=== PATIENT | female | born 1940 | race Hispanic/Latino ===

== ENCOUNTER 2019-11-14 10:25 | Emergency (ER) | payer MEDICARE, OTHER ==
[~2019-11-14] VITALS: Ht 162.6 cm; Wt 102.1 kg
[~2019-11-14 10:25] MED LIST: HYDROCODONE; LEVOFLOXACIN500 MG PO; PANTOPRAZOLE SO40 MG PO
--- OUTSIDE RECORDS SUMMARY | 2019-11-14 10:28 | XMS REPORT ---
Author Author [facility] Organization [facility] Address Unknown Phone Unavailable Care Team Providers Care Caustic Mixer Name Role Phone HUY BRANCH Unavailable Unavailable BUTCH DUBON Unavailable Unavailable Problems This patient has no known problems. Allergies, Adverse Reactions, Alerts This patient has no known allergies or adverse reactions. Medications This patient has no known medications. Results Test Description Test Time Test Comments Text Results Atomic Results Result Comments TISSUE EXAM 2019-01-10 16:54:00 Surgical Pat hology Report Case: [id number] Authorizing Provider: Luis Eduardo Branch MD Collected: 01/08/2019 1235 Ordering Location: [facility] PERIOPERATIVE Received: 01/08/2019 1403 SERVICES Pathologist: Fausto Pro MD Specimen: Bursa/Synovial Cyst VERTEBRAL COLUMN, INTERVERTEBRAL DISC, DISCECTOMY:FRAGMENTS OF FIBROCARTILAGE WITH CYSTIC DEGENERATION Signing Pathologist Direct Phone Line: [phone] signed by Fausto Pro MD on 01/10/2019 at 4:54 [id number] stenosis with neurogenic claudicationBursa/synovial cystThe case is received in part labeled with the patient's name, Gerda Cantrell, date of 1940 and accession number [id number] which corresponds to accompanying requisition page labeled with the same name and accession number. Received in formalin labeled "bursa/synovial cyst" is a 0.7 x 0.5 x 0.2 cm irregular mcwilliams-pink piece of tissue. The specimen submitted in toto following filtration in cassette A1. RP/plPERFORMED RAD, SPINE, LUMBAR, 1 VIEW 2019-01-08 11:45:00 Reason for ex am:->bilateral lamenectomy L3-L4 FINAL REPORT RAD, SPINE, LUMBAR, 1 VIEW CLINICAL INDICATION: bilateral lamenectomy L3-L4 COMPARISON: None IMPRESSION: A single lateral view of the lumbar spine is obtained intraoperatively. Indicator probe is present at the L3-4 level. Results were communicated to Dr. Branch, who concurred with the above findings. Signed: JR Danielle, Liane Chirinos Verified Date/Time: 01/08/2019 11:45:14 Reading Location: [facility] Reading Room -GLUCOSE METER 2018-02-28 10:51:00 POC-GLUCOSE METER (BEAKER) (test code = 1538) 182 mg/dL 70 -110 TESTED AT [facility] [address] [facility] [address] POCT-GLUCOSE [id number] 08:01:00* Test Item Value Reference Range Comments POC-GLUCOSE METER (BEAKER) (test code = 1538) 108 mg/dL 70 -110 TESTED AT [place] [id number] [facility] [address] COMPREHENSIVE METABOLIC [id number] 06:05:00* Test Item Value Reference Range Comments TOTAL PROTEIN (BEAKER) (test code = 770) 6.4 gm/dL 6.0-8.3 ALBUMIN (BEAKER) (test code = 1145) 3.8 g/dL 3.5-5.0 ALKALINE PHOSPHATASE (BEAKER) (test code = 346) 130 U/L 40-150 BILIRUBIN TOTAL (BEAKER) (test code = 377) 0.6 mg/dL 0.2-1 .2 SODIUM (BEAKER) (test code = 381) 143 meq/L 136-145 POTASSIUM (BEAKER) (test code = 379) 3.6 meq/L 3.5-5.1 CHLORIDE (BEAKER) (test code = 382) 109 meq/L 98-107 CO2 (BEAKER) (test code = 355) 24 meq/L 22-29 BLOOD UREA NITROGEN (BEAKER) (test code = 354) 11 mg/dL 7 -21 CREATININE (BEAKER) (test code = 358) 1.16 mg/dL 0.57-1.25 GLUCOSE RANDOM (BEAKER) (test code = 652) 116 mg/dL 70-105 CALCIUM (BEAKER) (test code = 697) 9.6 mg/dL 8.4-10.2 AST (SGOT) (BEAKER) (test code = 353) 75 U/L 5-34 ALT (SGPT) (BEAKER) (test code = 347) 98 U/L 6-55 EGFR (BEAKER) (test code = 1092) mL/min/1.73 sq m INSUFFICIENT CLINICAL DATA TO CALCULATE ESTIMATED GFR. B-TYPE NATRIURETIC FACTOR (BNP)2018-02-28 05:54:00* Test Item Value Reference Range Comments B-TYPE NATRIURETIC PEPTIDE (BEAKER) (test code = 700) 40 pg/mL 0-100 POCT-GLUCOSE [id number] 21:30:00* Test Item Value Reference Range Comments POC-GLUCOSE METER (BEAKER) (test code = 1538) 139 mg/dL 70 -110 TESTED AT [place] [id number] [facility] [address] EEG AWAKE AND [id number] 16:55:00Reason for exam:->AMSELECTROENCEPHALOGRAM PATIENT NAME: GERDA CANTRELL EEG NUMBER: [id number] EXAM DATE: FEBRUARY 27, 2018 START TIME: 9:56 AM END TIME: 10:18 AM ICD10: R56.8 TECHNICAL SUMMARY The occipital dominant rhythm is 9 Hz. Low voltage 18 to 22 Hz activity is present in anterior regions. There is some myogenic and movement potential present throughout the awake recording. Sleep: No focal or lateralizing features and no abnormal activity during periods of drowsiness. Photic stimulation: No ab normal activity elicitied. IMPRESSION: The findings of this patient's electro encephalogram are within the range of normal variation. Kim Guevara MD - GLUCOSE [id number] 13:08:00* Test Item Value Reference Range Comments POC-GLUCOSE METER (BEAKER) (test code = 1538) 165 mg/dL 70 -110 TESTED AT [facility] [address] [facility] [address] POCT-GLUCOSE [id number] 09:14:00* Test Item Value Reference Range Comments POC-GLUCOSE METER (BEAKER) (test code = 1538) 125 mg/dL 70 -110 TESTED AT [place] [id number] [facility] [address] POCT-GLUCOSE [id number] 17:34:00* Test Item Value Reference Range Comments POC-GLUCOSE METER (BEAKER) (test code = 1538) 175 mg/dL 70 -110 TESTED AT [facility] [address] [facility] [address] POCT-GLUCOSE [id number] 12:26:00* Test Item Value Reference Range Comments POC-GLUCOSE METER (BEAKER) (test code = 1538) 147 mg/dL 70 -110 TESTED AT [facility] [address] [facility] [address] POCT-GLUCOSE [id number] 07:54:00* Test Item Value Reference Range Comments POC-GLUCOSE METER (BEAKER) (test code = 1538) 125 mg/dL 70 -110 TESTED AT [facility] [address] [facility] [address] MR, BRAIN, WITHOUT [id number] 07:41:00Reason for exam:->Ischemic Stroke EvaluationFINAL REPORT MRI brain without contrast INDICATION: Dizziness, headache, trauma, fall TECHNIQUE: Multiplanar, multisequence MR imaging of the brain was performed utilizing the following imaging sequences: Axial T2, FLAIR, GRE, and DWI; sagittal and coronal T1 COMPARISON: CT head 02/24/2018 FINDINGS:There is no acute infarct, hematoma, extra-axial collection, hydrocephalus, or mass effect. Moderate cerebral chronic microvascular ischemia is present. There are chronic left larger than right cerebellar infarcts. The major vascular flow voids are maintained. There is generalized parenchymal volume loss. There is C1-2 arthropathy and cervical spondylosis. The sinuses and mastoid air cells are well aerated. The globes appear proptotic. The sella is unremarkable. There is nonspecific mildly heterogeneous marrow signal. IMPRESSION: 1. No evidence of acute infarct, hemorrhage, or hydrocephalus. 2. 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 3. Chronic microvascular ischemic changes. 4. Please see concurrent MRA for additional findings. Signed: Nely Douglas MDRort Verified Date/Time: 02/26/2018 07:41:14 Reading Location: [address] Neuro Reading Room A M MR, MRA, BRAIN, WITHOUT [id number] 07:40:00Reason for exam:->Ischemic Stroke EvaluationFINAL REPORT MRA head and neck without contrast INDICATION: Dizziness, headache, fall, trauma TECHNIQUE: 2-D and 3-D [id number] MRA images of the intra- and extracranial carotid and vertebral artery circulations were obtained, from which maximal intensity projection reconstructions were generated. COMPARISON: None available FINDINGS: MRA neck:The exam is motion degraded. Abnormalities may be obscured. There is cervical carotid atherosclerosis with mural thickening. There is redundancy and tortuosity of the right mid to distal ICA. No hemodynamically significant ICA stenosis is seen by NASCET criteria. There is antegrade flow in the cervical vertebral arteries without flow limitation. The proximal vertebral arteries cannot be evaluated due to artifacts and resultant signal loss. MRA [place]:The left CHANDRIKA A1 segment is hypoplastic chronically occluded. There is moderate tapered distal basilar artery stenosis, mild left intradural vertebral artery stenosis, carotid siphon atherosclerosis. The remaining proximal [place] vessels penetrate no flow limiting stenosis. 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 IMPRESSION: 1. Motion degraded exams. 2. Cervical carotid atherosclerosis without evident hemodynamically significant ICA stenosis by NASCET criteria. 3. Obscured v ertebral artery proximal segments due to artifacts. Otherwise no flow limiting c ervical vertebral artery stenosis seen. 4. 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 5. 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 MRA surveillance can be obtained for stability assessment, perhaps in 6-12 months. Signed: Nely Douglas MDReport Verified Date/Reij e: 02/26/2018 07:40:29 Reading Location: [facility] B1 C013V Neuro Reading Room Elec tronically signed by: NELY DOUGLAS M.D. on 02/26/2018 07:40 AM MR, MRA, NECK, WITHOUT IV [id number] 07:40:00Reason for exam:->Ischemic Stroke EvaluationFINAL REPORT MRA head and neck without contrast INDICATION: Dizziness, headache, fall, trauma TECHNIQUE: 2-D and 3-D [id number] MRA images of the intra- and extracranial carotid and vertebral artery circulations were obtained, from which maximal intensity projection reconstructions were generated. COMPARISON: None available FINDINGS: MRA neck:The exam is motion degraded. Abnormalities may be obscured. There is cervical carotid atherosclerosis with mural thickening. There is redundancy and tortuosity of the right mid to distal ICA. No hemodynamically significant ICA stenosis is seen by NASCET criteria. There is antegrade flow in the cervical vertebral arteries without flow limitation. The proximal vertebral arteries cannot be evaluated due to artifacts and resultant signal loss. MRA [place]:The left CHANDRIKA A1 segment is hypoplastic chronically occluded. There is moderate tapered distal basilar artery stenosis, mild left intradural vertebral artery stenosis, carotid siphon atherosclerosis. The remaining proximal [place] vessels penetrate no flow limiting stenosis. 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 IMPRESSION: 1. Motion degraded exams. 2. Cervical carotid atherosclerosis without evident hemodynamically significant ICA stenosis by NASCET criteria. 3. Obscured v ertebral artery proximal segments due to artifacts. Otherwise no flow limiting c ervical vertebral artery stenosis seen. 4. 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 5. 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 MRA surveillance can be obtained for stability assessment, perhaps in 6-12 months. Signed: Nely Douglas MDReport Verified Date/Reji e: 02/26/2018 07:40:29 Reading Location: [address] Neuro Reading Room Elec tronically signed by: NELY DOUGLAS M.D. on 02/26/2018 07:40 AM COMPREHENSIVE METABOLIC [id number] 03:29:00* Test Item Value Reference Range Comments TOTAL PROTEIN (BEAKER) (test code = 770) 6.2 gm/dL 6.0-8.3 ALBUMIN (BEAKER) (test code = 1145) 3.7 g/dL 3.5-5.0 ALKALINE PHOSPHATASE (BEAKER) (test code = 346) 148 U/L 40-150 BILIRUBIN TOTAL (BEAKER) (test code = 377) 0.5 mg/dL 0.2-1 .2 SODIUM (BEAKER) (test code = 381) 142 meq/L 136-145 POTASSIUM (BEAKER) (test code = 379) 3.7 meq/L 3.5-5.1 CHLORIDE (BEAKER) (test code = 382) 111 meq/L 98-107 CO2 (BEAKER) (test code = 355) 24 meq/L 22-29 BLOOD UREA NITROGEN (BEAKER) (test code = 354) 20 mg/dL 7 -21 CREATININE (BEAKER) (test code = 358) 1.25 mg/dL 0.57-1.25 GLUCOSE RANDOM (BEAKER) (test code = 652) 112 mg/dL 70-105 CALCIUM (BEAKER) (test code = 697) 9.0 mg/dL 8.4-10.2 AST (SGOT) (BEAKER) (test code = 353) 122 U/L 5-34 ALT (SGPT) (BEAKER) (test code = 347) 137 U/L 6-55 EGFR (BEAKER) (test code = 1092) mL/min/1.73 sq m INSUFFICIENT CLINICAL DATA TO CALCULATE ESTIMATED GFR. CBC W/PLT COUNT & AUTO [id number] 03:08:00* Test Item Value Reference Range Comments WHITE BLOOD CELL COUNT (BEAKER) (test code = 775) 5.1 K/ L 3.5-10.5 RED BLOOD CELL COUNT (BEAKER) (test code = 761) 3.63 M/ L 3.93-5.22 HEMOGLOBIN (BEAKER) (test code = 410) 11.2 GM/DL 11.2-15.7 HEMATOCRIT (BEAKER) (test code = 411) 34.6 % 34.1-44.9 MEAN CORPUSCULAR VOLUME (BEAKER) (test code = 753) 95.3 fL 79.4-94.8 MEAN CORPUSCULAR HEMOGLOBIN (BEAKER) (test code = 751) 30.9 pg 25.6-32.2 MEAN CORPUSCULAR HEMOGLOBIN CONC (BEAKER) (test code = 752) 32.4 GM/DL 32.2-35.5 RED CELL DISTRIBUTION WIDTH (BEAKER) (test code = 412) 13.9 % 11.7-14.4 PLATELET COUNT (BEAKER) (test code = 756) 152 K/CU MM 150-45 0 MEAN PLATELET VOLUME (BEAKER) (test code = 754) 10.4 fL 9.4-12.3 NUCLEATED RED BLOOD CELLS (BEAKER) (test code = 413) 0 /100 WBC 0-0 NEUTROPHILS RELATIVE PERCENT (BEAKER) (test code = 429) 47 % LYMPHOCYTES RELATIVE PERCENT (BEAKER) (test code = 430) 41 % MONOCYTES RELATIVE PERCENT (BEAKER) (test code = 431) 7 % EOSINOPHILS RELATIVE PERCENT (BEAKER) (test code = 432) 4 % BASOPHILS RELATIVE PERCENT (BEAKER) (test code = 437) 0 % NEUTROPHILS ABSOLUTE COUNT (BEAKER) (test code = 670) 2.37 K/ L 1.56-6.13 LYMPHOCYTES ABSOLUTE COUNT (BEAKER) (test code = 414) 2.08 K/ L 1.18-3.74 MONOCYTES ABSOLUTE COUNT (BEAKER) (test code = 415) 0.34 K/ L 0.24-0.36 EOSINOPHILS ABSOLUTE COUNT (BEAKER) (test code = 416) 0.22 K/ L 0.04-0.36 BASOPHILS ABSOLUTE COUNT (BEAKER) (test code = 417) 0.02 K/ L 0.01-0.08 IMMATURE GRANULOCYTES-RELATIVE PERCENT (BEAKER) (test code = 280 1) 1 % 0-1 POCT-GLUCOSE [id number] 22:52:00* Test Item Value Reference Range Comments POC-GLUCOSE METER (BEAKER) (test code = 1538) 123 mg/dL 70 -110 TESTED AT [facility] [address] [facility] [address] HEMOGLOBIN [id number] 11:09:00* Test Item Value Reference Range Comments HEMOGLOBIN A1C (BEAKER) (test code = 368) 6.2 % 4.3-6. 1 TSH/FREE T4 IF [id number] 06:32:00* Test Item Value Reference Range Comments THYROID STIMULATING HORMONE (BEAKER) (test code = 772) 1.71 uIU/ mL 0.35-4.94 [id number] 05:58:00* Test Item Value Reference Range Comments MAGNESIUM (BEAKER) (test code = 627) 2.4 mg/dL 1.6-2.6 LIPID [id number] 05:58:00* Test Item Value Reference Range Comments TRIGLYCERIDES (BEAKER) (test code = 540) 177 mg/dL CHOLESTEROL (BEAKER) (test code = 631) 138 mg/dL HDL CHOLESTEROL (BEAKER) (test code = 976) 38 mg/dL LDL CHOLESTEROL CALCULATED (BEAKER) (test code = 633) 65 mg/dL Triglyceride Reference Range: Low Risk <150 Borderline 150-199 High Risk 200-499 Very High Risk >=500Cholesterol Reference Range: Low Risk <200 Borderline 200-239 High Risk >240HDL Cholesterol Reference Range: Low Risk >=60 High Risk <40LDL Cholesterol Reference Range: Optimal <100 Near Optimal 100-129 Borderline 130-159 High 160-189 Very High >=190 HEPATIC FUNCTION [id number] 05:58:00* Test Item Value Reference Range Comments TOTAL PROTEIN (BEAKER) (test code = 770) 6.5 gm/dL 6.0-8.3 ALBUMIN (BEAKER) (test code = 1145) 3.9 g/dL 3.5-5.0 BILIRUBIN TOTAL (BEAKER) (test code = 377) 0.6 mg/dL 0.2-1 .2 BILIRUBIN DIRECT (BEAKER) (test code = 706) 0.3 mg/dL 0.1- 0.5 ALKALINE PHOSPHATASE (BEAKER) (test code = 346) 169 U/L 40-150 AST (SGOT) (BEAKER) (test code = 353) 243 U/L 5-34 ALT (SGPT) (BEAKER) (test code = 347) 211 U/L 6-55 BASIC METABOLIC [id number] 05:58:00* Test Item Value Reference Range Comments SODIUM (BEAKER) (test code = 381) 143 meq/L 136-145 POTASSIUM (BEAKER) (test code = 379) 3.7 meq/L 3.5-5.1 CHLORIDE (BEAKER) (test code = 382) 110 meq/L 98-107 CO2 (BEAKER) (test code = 355) 22 meq/L 22-29 BLOOD UREA NITROGEN (BEAKER) (test code = 354) 31 mg/dL 7 -21 CREATININE (BEAKER) (test code = 358) 1.76 mg/dL 0.57-1.25 GLUCOSE RANDOM (BEAKER) (test code = 652) 97 mg/dL 70-105 CALCIUM (BEAKER) (test code = 697) 9.2 mg/dL 8.4-10.2 EGFR (BEAKER) (test code = 1092) mL/min/1.73 sq m INSUFFICIENT CLINICAL DATA TO CALCULATE ESTIMATED GFR. B-TYPE NATRIURETIC FACTOR (BNP)2018-02-25 05:55:00* Test Item Value Reference Range Comments B-TYPE NATRIURETIC PEPTIDE (BEAKER) (test code = 700) 326 pg/mL 0-100 CBC W/PLT COUNT & AUTO [id number] 05:26:00* Test Item Value Reference Range Comments WHITE BLOOD CELL COUNT (BEAKER) (test code = 775) 4.6 K/ L 3.5-10.5 RED BLOOD CELL COUNT (BEAKER) (test code = 761) 3.76 M/ L 3.93-5.22 HEMOGLOBIN (BEAKER) (test code = 410) 11.6 GM/DL 11.2-15.7 HEMATOCRIT (BEAKER) (test code = 411) 36.2 % 34.1-44.9 MEAN CORPUSCULAR VOLUME (BEAKER) (test code = 753) 96.3 fL 79.4-94.8 MEAN CORPUSCULAR HEMOGLOBIN (BEAKER) (test code = 751) 30.9 pg 25.6-32.2 MEAN CORPUSCULAR HEMOGLOBIN CONC (BEAKER) (test code = 752) 32.0 GM/DL 32.2-35.5 RED CELL DISTRIBUTION WIDTH (BEAKER) (test code = 412) 13.8 % 11.7-14.4 PLATELET COUNT (BEAKER) (test code = 756) 149 K/CU MM 150-45 0 MEAN PLATELET VOLUME (BEAKER) (test code = 754) 10.7 fL 9.4-12.3 NUCLEATED RED BLOOD CELLS (BEAKER) (test code = 413) 0 /100 WBC 0-0 NEUTROPHILS RELATIVE PERCENT (BEAKER) (test code = 429) 54 % LYMPHOCYTES RELATIVE PERCENT (BEAKER) (test code = 430) 35 % MONOCYTES RELATIVE PERCENT (BEAKER) (test code = 431) 7 % EOSINOPHILS RELATIVE PERCENT (BEAKER) (test code = 432) 4 % BASOPHILS RELATIVE PERCENT (BEAKER) (test code = 437) 1 % NEUTROPHILS ABSOLUTE COUNT (BEAKER) (test code = 670) 2.45 K/ L 1.56-6.13 LYMPHOCYTES ABSOLUTE COUNT (BEAKER) (test code = 414) 1.58 K/ L 1.18-3.74 MONOCYTES ABSOLUTE COUNT (BEAKER) (test code = 415) 0.30 K/ L 0.24-0.36 EOSINOPHILS ABSOLUTE COUNT (BEAKER) (test code = 416) 0.17 K/ L 0.04-0.36 BASOPHILS ABSOLUTE COUNT (BEAKER) (test code = 417) 0.03 K/ L 0.01-0.08 IMMATURE GRANULOCYTES-RELATIVE PERCENT (BEAKER) (test code = 280 1) 0 % 0-1 U/S, RENAL, [id number] 03:20:00Reason for exam:->renal failureFINAL REPORT EXAM: COMPLETE RENAL ULTRASOUND CLINICAL HISTORY: RENAL FAILURE TECHNIQUE: A complete renal ultrasound was performed in the usual fashion with transabdominal imaging. FINDINGS: Compared with abdominal CT 09/13/2012 The right kidney measures 11 x 5 x 7 cm. The left kidney measures 11 x 5 x 5 cm. No evidence of hydronephrosis. The right kidney is associated with at least 2 small echogenic foci which measure 6 mm and 4 mm respectively and are s uspicious for small renal stones. The left kidney is also associated with a smal l 4 mm echogenic focus again suspicious for a nonobstructing calculus. The renal cortical echogenicity was normal. The right renal cortex measures 15 mm. Left r enal cortex measures 14 mm. The main renal arteries and veins were patent where visible. Right kidney lower pole is associated with a 7 cm cyst. Left kidney low er pole is associated with a 2.4 cm cyst. The bladder is distended. The prevoid bladder volume was 608 cc. The post void bladder volume was 242 cc. IMPRESSION: Small bilateral nonobstructing renal calculi. Post void bladder residual (242 cc ). Simple bilateral renal cysts. Signed: Nestor Salas MDReport Verified Date/Reji e: 02/25/2018 03:20:12 Reading Location: [address] Transitional Reading Room ALYSIS W/ [id number] 13:16:00* Test Item Value Reference Range Comments COLOR (BEAKER) (test code = 470) Yellow CLARITY (BEAKER) (test code = 469) Clear SPECIFIC GRAVITY UA (BEAKER) (test code = 468) 1.005 1 .001-1.035 PH UA (BEAKER) (test code = 467) 5.5 5.0-8.0 PROTEIN UA (BEAKER) (test code = 464) Negative Negative GLUCOSE UA (BEAKER) (test code = 365) Negative Negative KETONES UA (BEAKER) (test code = 371) Negative Negative BILIRUBIN UA (BEAKER) (test code = 462) Negative Negative BLOOD UA (BEAKER) (test code = 461) Negative Negative NITRITE UA (BEAKER) (test code = 465) Negative Negative LEUKOCYTE ESTERASE UA (BEAKER) (test code = 466) Small Negative UROBILINOGEN UA (BEAKER) (test code = 463) 0.2 mg/dL 0.2-1 .0 RBC UA (BEAKER) (test code = 519) 0 /HPF WBC UA (BEAKER) (test code = 520) 1 /HPF BACTERIA (BEAKER) (test code = 517) Rare SQUAMOUS EPITHELIAL (BEAKER) (test code = 516) < /HPF SOURCE(BEAKER) (test code = 2795) Urine, Clean Catch RAD, CHEST, 1 VIEW, NON [id number] 11:39:00Reason for exam:->CHEST PAINShould this be performed at the bedside?->YesFINAL REPORT Chest one view INDICATION: Chest pain COMPARISON: 09/13/2012 IMPRESSION: The right diaphragm remains elevated. There is no focal consolidation, edema, pleural effusion, or pneumothorax. The cardiac silhouette is enlarged. Aortic calcification mild tortuosity and a right humeral head suture anchor are noted. Signed: Nely Douglas MDReport Verified Date/Time: 02/24/2018 11:39:52 Reading Location: [facility] Radiology Reading Room TINE KINASE (CK), TOTAL AND [id number] 11:05:00* Test Item Value Reference Range Comments CREATINE KINASE TOTAL (BEAKER) (test code = 380) 249 U/L 29-200 CREATINE KINASE-MB (BEAKER) (test code = 750) 5.7 ng/mL 0. 0-6.6 CREATINE KINASE-MB INDEX (JULIO C) (test code = 395) 2.3 % CK-MB Reference Range:<6.7 Normal6.7-10.0 Borderline>10.0 Abnormal TROPONIN [id number] 11:05:00* Test Item Value Reference Range Comments TROPONIN I (JULIO C) (test code = 397) 0.01 ng/mL 0.00-0.03 Troponin I (TnI) levels must be interpreted in the context of the presenting sym ptoms and the clinical findings. Elevated TnI levels indicate myocardial damage, but are not specific for ischemic heart disease. Elevated TnI levels are seen in patients with other cardiac conditions (including myocarditis and congestive h eart failure), and slight TnI elevations occur in patients with other conditions , including sepsis, renal failure, acidosis, acute neurological disease, and per sistent tachyarrhythmia.CT, BRAIN, WITHOUT [id number] 11:03:00Reason for exam:->headacheWhat is the patient's sedation requirement?->No SedationFINAL REPORT CT head without contrast. Comparisons: No Reason for exam: headachefall/trauma. Discussion: Multiple axial CT shira ges of the head are provided without contrast evaluated in brain and bone window s. Dose modulation, iterative reconstruction, and/or weight based adjustment of the mA/kV was utilized to reduce the radiation dose to as low as reasonably achi evable. There is no CT evidence of intracranial hemorrhage, mass-effect, hydroc ephalus, shift, or extra-axial collections. Cerebral microvascular changes are present on both sides. There is a chronic appearing peripheral left cerebellar s mall to moderate-sized infarct. Left-sided nasal bone irregularities are not ke eping with trauma likely old. The visualized dural sinus regions, orbital conten ts, paranasal sinuses, bones and surrounding soft tissues are otherwise unremark able. Impressions: 1. No specific evidence of acute intracranial abnormali ty. Signed: Wally Schneider Verified Date/Time: 02/24/2018 11:03:38 Read ing Location: [address] Neuro Reading Room C METABOLIC [id number] 10:58:00 * Test Item Value Reference Range Comments SODIUM (BEAKER) (test code = 381) 136 meq/L 136-145 POTASSIUM (BEAKER) (test code = 379) 3.7 meq/L 3.5-5.1 CHLORIDE (BEAKER) (test code = 382) 103 meq/L 98-107 CO2 (BEAKER) (test code = 355) 25 meq/L 22-29 BLOOD UREA NITROGEN (BEAKER) (test code = 354) 37 mg/dL 7 -21 CREATININE (BEAKER) (test code = 358) 2.37 mg/dL 0.57-1.25 GLUCOSE RANDOM (BEAKER) (test code = 652) 106 mg/dL 70-105 CALCIUM (BEAKER) (test code = 697) 9.3 mg/dL 8.4-10.2 EGFR (BEAKER) (test code = 1092) mL/min/1.73 sq m INSUFFICIENT CLINICAL DATA TO CALCULATE ESTIMATED GFR. CBC W/PLT COUNT & AUTO [id number] 10:30:00* Test Item Value Reference Range Comments WHITE BLOOD CELL COUNT (BEAKER) (test code = 775) 5.5 K/ L 3.5-10.5 RED BLOOD CELL COUNT (BEAKER) (test code = 761) 3.73 M/ L 3.93-5.22 HEMOGLOBIN (BEAKER) (test code = 410) 11.6 GM/DL 11.2-15.7 HEMATOCRIT (BEAKER) (test code = 411) 35.0 % 34.1-44.9 MEAN CORPUSCULAR VOLUME (BEAKER) (test code = 753) 93.8 fL 79.4-94.8 MEAN CORPUSCULAR HEMOGLOBIN (BEAKER) (test code = 751) 31.1 pg 25.6-32.2 MEAN CORPUSCULAR HEMOGLOBIN CONC (BEAKER) (test code = 752) 33.1 GM/DL 32.2-35.5 RED CELL DISTRIBUTION WIDTH (BEAKER) (test code = 412) 13.5 % 11.7-14.4 PLATELET COUNT (BEAKER) (test code = 756) 151 K/CU MM 150-45 0 MEAN PLATELET VOLUME (BEAKER) (test code = 754) 10.1 fL 9.4-12.3 NUCLEATED RED BLOOD CELLS (BEAKER) (test code = 413) 0 /100 WBC 0-0 NEUTROPHILS RELATIVE PERCENT (BEAKER) (test code = 429) 63 % LYMPHOCYTES RELATIVE PERCENT (BEAKER) (test code = 430) 26 % MONOCYTES RELATIVE PERCENT (BEAKER) (test code = 431) 7 % EOSINOPHILS RELATIVE PERCENT (BEAKER) (test code = 432) 4 % BASOPHILS RELATIVE PERCENT (BEAKER) (test code = 437) 1 % NEUTROPHILS ABSOLUTE COUNT (BEAKER) (test code = 670) 3.45 K/ L 1.56-6.13 LYMPHOCYTES ABSOLUTE COUNT (BEAKER) (test code = 414) 1.41 K/ L 1.18-3.74 MONOCYTES ABSOLUTE COUNT (BEAKER) (test code = 415) 0.37 K/ L 0.24-0.36 EOSINOPHILS ABSOLUTE COUNT (BEAKER) (test code = 416) 0.19 K/ L 0.04-0.36 BASOPHILS ABSOLUTE COUNT (BEAKER) (test code = 417) 0.03 K/ L 0.01-0.08 IMMATURE GRANULOCYTES-RELATIVE PERCENT (BEAKER) (test code = 280 1) 0 % 0-1
--- NOTE | 2019-11-14 11:17 | Diagnostic Imaging Report ---
EXAMINATION: FOOT 3 VIEW LT - HOPD INDICATION: Left foot pain COMPARISON: None FINDINGS: AP lateral and oblique images of the left foot were obtained. No acute fracture or dislocation. Alignment is anatomic. Mild degenerative changes of the first MTP joint. The soft tissues appear unremarkable. Small plantar calcaneal spur. Scattered atherosclerotic arterial calcifications. IMPRESSION: No acute osseous injury. Mild first MTP joint degenerative changes. Signed by: Jack So MD on 11/14/2019 11:13 AM
[2019-11-14] MEDS ORDERED: PREDNISONE20 MG PO (11:22)
--- NOTE | 2019-11-14 12:11 | Diagnostic Imaging Report ---
EXAMINATION: SHOULDER 2+VW RT - HOPD INDICATION: Right shoulder pain COMPARISON: None FINDINGS: No acute fracture or dislocation. Alignment is anatomic. Postoperative findings of prior rotator cuff repair. Mild widening of the acromioclavicular interval. The visualized portions of the right lung are clear. IMPRESSION: No acute osseous injury. Mild widening of the acromioclavicular interval. Recommend contralateral shoulder radiographs for comparison. Signed by: Jack So MD on 11/14/2019 12:07 PM
--- NOTE | 2019-11-14 12:13 | NUR ---
back to radiology third time for comparison shoulders per . w/c to xray by tech.
--- NOTE | 2019-11-14 12:54 | NUR ---
SLING TO RT ARM PER MD ORDER. +PMS BEFORE AND AFTER PLACEMENT. TEACHING DONE.
--- NOTE | 2019-11-14 13:13 | Diagnostic Imaging Report ---
EXAMINATION: SHOULDER 2+VW LT -HOPD INDICATION: Right shoulder pain, contralateral comparison COMPARISON: Right shoulder radiographs of earlier the same day FINDINGS: No acute fracture or dislocation. Alignment is anatomic. The acromioclavicular interval is normal on the left. The visualized portions of the left lung are clear. Soft tissues are unremarkable. IMPRESSION: No acute osseous injury. Normal acromioclavicular interval on the left compared to the right. This is suggestive of low-grade acromioclavicular injury on the right. Signed by: Jack So MD on 11/14/2019 1:10 PM
== END 2019-11-14 12:48 | disposition home or self-care (01) ==
LOC: FSED 10:25
DX: M25.511 Pain in right shoulder (principal); S43.421A Sprain of right rotator cuff capsule, initial encounter; M10.072 Idiopathic gout, left ankle and foot; V19.3XXA Pedal cyclist (driver) (passenger) injured in unspecified nontraffic accident, initial encounter; Y93.55 Activity, bike riding; Y92.488 Other paved roadways as the place of occurrence of the external cause
CPT/HCPCS: 80048; 85025; 99284

== ENCOUNTER 2022-09-25 11:02 | Emergency (ER) | payer MEDICARE ==
[~2022-09-25] VITALS: Ht 162.6 cm; Wt 102.1 kg
[~2022-09-25 11:02] MED LIST changes: +PREDNISONE20 MG PO
== END 2022-09-25 13:32 | disposition home or self-care (01) ==
LOC: ER 11:09
DX: S52.591A Other fractures of lower end of right radius, initial encounter for closed fracture (principal); S52.611A Displaced fracture of right ulna styloid process, initial encounter for closed fracture; W01.0XXA Fall on same level from slipping, tripping and stumbling without subsequent striking against object, initial encounter; Y92.89 Other specified places as the place of occurrence of the external cause; I10 Essential (primary) hypertension; K21.9 Gastro-esophageal reflux disease without esophagitis; F32.A Depression, unspecified
CPT/HCPCS: 99283